=== PATIENT | male | born 1995 | race Caucasian/White ===

== ENCOUNTER 2019-12-14 15:55 | Emergency (ER) | payer OTHER ==
[~2019-12-14] VITALS: Ht 165.1 cm; Wt 54.4 kg
[2019-12-14 16:09] LABS: URINE BLOOD TRACE (Negative); URINE CLARITY CLEAR; URINE COLOR ORANGE; URINE GLUCOSE-RANDOM* TRACE (Negative); URINE KETONES NEGATIVE (Negative); URINE LEUKOCYTES-REFLEX NEGATIVE (Negative); URINE PROTEIN (DIPSTICK) 1+ (Negative); URINE SPECIFIC GRAVITY >= 1.030 (1.005-1.035)
[2019-12-14 16:10] LABS: URINE NITRITE-REFLEX POSITIVE (Negative)
[2019-12-14 16:21] LABS: ICTOTEST (BILI CONFIRMATORY) Negative (Negative); URINE BILIRUBIN NEGATIVE (Negative)
[2019-12-14 16:23] LABS: MUCUS 4-6 Moderate strn/LPF (None Seen)
[2019-12-14 16:24] LABS: SQUAMOUS 0-3 Few /LPF (0-3)
[2019-12-14 16:25] LABS: CASTS None Seen /LPF (None Seen); URINE RBC 0-2 Rare /HPF (0-2); URINE WBC-REFLEX 6-15 Few /HPF (0-5)
[2019-12-14 16:27] LABS: BACTERIA-REFLEX 1-9 Few /HPF (None Seen)
[2019-12-14 16:28] LABS: CRYSTALS None Seen /LPF (None Seen)
[2019-12-14] MEDS ORDERED: KEFLEX500 M2 PO (16:35)
[2019-12-14 17:00] VITALS: BP 94/39
== END 2019-12-14 17:23 | disposition home or self-care (01) ==
LOC: ER 15:55
PROVIDERS: Student in an Organized Health Care Education/Training Program
DX: R30.0 Dysuria (principal)